=== PATIENT | male | born 1945 | race Caucasian/White ===

== ENCOUNTER → 2017-12-05 | Outpatient (CLI) | payer MEDICARE ==
[2017-12-05 10:45] LABS: BASOPHILS ABSOLUTE AUTO 0.04 K/mm3 (0.00-0.23); BASOPHILS PERCENT AUTO 1 % (0-2); EOSINOPHILS ABSOLUTE AUTO 0.12 K/mm3 (0.00-0.68); EOSINOPHILS PERCENT AUTO 2 % (0-6); Hematocrit 52.3 % (37.0-53.0); Hemoglobin 18.3 g/dL (13.5-17.5); IMMATURE GRAN ABSOLUTE AUTO 0.02 K/mm3 (0.00-0.10); IMMATURE GRAN PERCENT AUTO 0 % (0-1); LYMPHOCYTES ABSOLUTE AUTO 1.29 K/mm3 (0.84-5.20); LYMPHOCYTES PERCENT AUTO 18 % (21-46); MONOCYTES ABSOLUTE AUTO 0.67 K/mm3 (0.16-1.47); MONOCYTES PERCENT AUTO 10 % (4-13); Mean Corpuscular HGB 30.6 pg (26.0-34.0); Mean Corpuscular Volume 87 fL (80-100); Mean Platelet Volume 10.7 fL (9.1-12.4); NEUTROPHILS ABSOLUTE AUTO 4.91 K/mm3 (1.96-9.15); NEUTROPHILS PERCENT AUTO 70 % (41-73); Platelet Count 178 K/mm3 (150-400); RDW Coefficient Variation 12.5 % (11.7-14.2); RDW Standard Deviation 39.7 fL (35.1-46.3); Red Blood Cell Count 5.99 M/mm3 (4.30-5.90); White Blood Cell Count 7.05 K/mm3 (4.00-11.30)
[2017-12-05 10:56] LABS: Alanine Aminotransfer (ALT/SGP 20 U/L (12-78); Albumin, Blood 3.8 g/dL (3.4-5.0); Albumin/Globulin Ratio 0.9 (0.8-1.8); Alk Phos 119 U/L (40-126); Anion Gap 9 mmol/L (6-16); Aspartate Aminotrans (AST/SGOT 20 U/L (12-37); Bilirubin, Total 0.8 mg/dL (0.1-1.0); Blood Urea Nitrogen 14 mg/dL (8-24); Bun/Creatinine Ratio 13.5 (12.0-20.0); CO2, Blood 29 mmol/L (21-32); Calcium, Blood 9.1 mg/dL (8.5-10.1); Chloride, Blood 104 mmol/L (98-108); Creatinine, Blood 1.04 mg/dL (0.60-1.20); Globulin, Blood 4.4 g/dL (2.2-4.0); Glomerular Filtration Rate >60 (60-); Glucose, Blood 136 mg/dL (70-99); Sodium, Blood 142 mmol/L (136-145); Total Protein, Blood 8.2 g/dL (6.4-8.2)
== END ==
LOC: LAB EV 10:39 → LAB SHORT 10:39
PROVIDERS: General Practice
DX: N48.1 Balanitis (principal)
CPT/HCPCS: 80053; 85025

== ENCOUNTER 2020-05-30 15:47 | Inpatient (IN) | payer MEDICARE ==
[~2020-05-30] VITALS: Ht 182.9 cm; Wt 118.1 kg
[2020-05-30] MEDS ORDERED: SYMBICORT 80-10.2 GM INH (16:03)
[2020-05-30] MEDS ORDERED: ALBU8HFA2 INH (16:04)
[2020-05-30] MEDS ORDERED: ANORO ELLIPTA1 EAC1 (16:04)
[2020-05-30] MEDS ORDERED: TAMS.4ER PO (16:05)
[2020-05-30] MEDS ORDERED: NEBI10 PO (16:05)
[2020-05-30 16:28] LABS: BASOPHILS ABSOLUTE AUTO 0.05 K/mm3 (0.00-0.23); BASOPHILS PERCENT AUTO 1 % (0-2); EOSINOPHILS ABSOLUTE AUTO 0.08 K/mm3 (0.00-0.68); EOSINOPHILS PERCENT AUTO 1 % (0-6); Hematocrit 52.7 % (37.0-53.0); Hemoglobin 17.1 g/dL (13.5-17.5); IMMATURE GRAN ABSOLUTE AUTO 0.04 K/mm3 (0.00-0.10); IMMATURE GRAN PERCENT AUTO 0 % (0-1); LYMPHOCYTES PERCENT AUTO 11 % (21-46); MONOCYTES ABSOLUTE AUTO 0.58 K/mm3 (0.16-1.47); MONOCYTES PERCENT AUTO 5 % (4-13); Mean Corpuscular HGB 29.1 pg (26.0-34.0); Mean Corpuscular HGB Conc 32.4 g/dL (31.5-36.5); Mean Corpuscular Volume 90 fL (80-100); Mean Platelet Volume 10.5 fL (9.1-12.4); NEUTROPHILS PERCENT AUTO 82 % (41-73); Platelet Count 226 K/mm3 (150-400); RDW Coefficient Variation 12.3 % (11.7-14.2); RDW Standard Deviation 41.1 fL (35.1-46.3); Red Blood Cell Count 5.87 M/mm3 (4.30-5.90); White Blood Cell Count 10.85 K/mm3 (4.00-11.30)
[2020-05-30 16:54] LABS: Alanine Aminotransfer (ALT/SGP 11 U/L (12-78); Albumin, Blood 2.8 g/dL (3.4-5.0); Albumin/Globulin Ratio 0.7 (0.8-1.8); Alk Phos 128 U/L (50-136); Anion Gap 6 mmol/L (6-16); Aspartate Aminotrans (AST/SGOT 26 U/L (12-37); Bilirubin, Total 0.9 mg/dL (0.1-1.0); Blood Urea Nitrogen 12 mg/dL (8-24); Bun/Creatinine Ratio 13.7 (12.0-20.0); CO2, Blood 25 mmol/L (21-32); Calcium, Blood 8.8 mg/dL (8.5-10.1); Chloride, Blood 107 mmol/L (98-108); Creatinine, Blood 0.88 mg/dL (0.60-1.20); Globulin, Blood 4.1 g/dL (2.2-4.0); Glomerular Filtration Rate >60 (60-); Glucose, Blood 119 mg/dL (70-99); Potassium, Blood 4.4 mmol/L (3.5-5.5); Sodium, Blood 138 mmol/L (136-145); Total Protein, Blood 6.9 g/dL (6.4-8.2); Troponin I <0.015 ng/mL (0.000-0.040)
[2020-05-30 18:08] LABS: Influenza A, PCR Negative (NEGATIVE); Influenza B, PCR Negative (NEGATIVE); Resp Syncytial Virus, PCR Negative (NEGATIVE); SARS-Cov-2 (COVID-19) PCR, MMC Negative (NEGATIVE)
[2020-05-30] MEDS ORDERED: INCRUSE ELPT 62.5 INH (18:33)
[2020-05-30] MEDS ORDERED: TAMSULOSIN HCL0.4 M1 PO (18:34)
--- NOTE | 2020-05-30 20:23 | NUR ---
REPORT RECEIVED FROM NANCY IN ED, RECEIVED PT TO PCU 14. OREINTED PT TO CALL LIGHT AND SURROUNDINGS. ADMISSION ASSESSMENT INTIATED. PT HAS MOD AMOUNT SHORTNESS OF BREATH WITH ALL EXETION INCLUDING TALKING. O2@3.5LPM. WILL CONTINUE TO MONITOR
--- NOTE | 2020-05-31 01:55 | NUR ---
PT HAD APPROX 1 MINUTE RUN OF TACKYCARDIA IN 150s. PT RESTING IN BED, DENIES ANY CHEST PAIN/SOB/ANXIETY. BP STABLE @ 129/74. PT HAD 2ND RUN SHORTLY THERE AFTER, PT CONTINUES TO BE BY ASYMPTOMATIC, WATCHING TV IN BED. BP STABLE @ 122/74. PAGED CORK TIPPER VOLTAGE INSPECTOR FOR UPDATE
--- NOTE | 2020-05-31 05:08 | NUR ---
SHIFT SUMMARY PT A&O THROUGHOUT SHIFT. LUNG SOUNDS DECREASED WITH EXERTIONAL DYSPNEA/SHORTNESS OF BREATH. CONGESTED COUGH, NON PRODUCTIVE AT THIS TIME. O2@ 3.5LPM VIA NC. C/O CHRONIC PAIN TO NECK FROM OLD INJURY, DID NOT REQUEST PAIN MED. STANDS TO URINATE, VOIDING CLR YELLOW URINE, BECOMES DYSPNIC WITH EFFORT. RESP STATUS RECOVERS WELL WITH PERIODS OF REST. WILL CONTINUE TO MONITOR
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
--- NOTE | 2020-05-31 17:15 | NUR ---
SUMMARY PT SITTING UP IN BED WATCHING TV, PT HAS BEEN PLEASANT AND COOPERATIVE WITH CARE T/O THE DAY, PT REMAINS ON 3L NC, PT DYSPNEIC WITH ANY ACTIVITY, USES THE CALL LIGHT APPROPRIATELY, NO COMPLAINTS, VSS, WILL CONT TO MONITOR
--- NOTE | 2020-05-31 20:59 | NUR ---
1997 74 Y/O OBESE MALE RESTING COMFORTABLY IN BED; CHEERFUL; DENIES CHEST PAIN OR NAUSEA.
--- NOTE | 2020-06-01 03:06 | NUR ---
SHIFT SUMMARY: 74 Y/O OBESE MALE RESTED COMFORTABLY ALL SHIFT; DENIES PAIN OR NAUSEA; TELEMETRY REFLECTS NSR PER ROSALIE--RISK INTERN; PT WEARING O2 AT 3L/M PER NASAL CANNULA WITH SATS AVERAGING 91%; LUNG SOUNDS ARE DIMINISHED THROUGHOUT; ALERT AND ORIENTED X4; BED HIGH FOWLERS POSITION; BED LOW POSITION WITH CALL LIGHT AT SIDE.
[2020-06-01 09:08] LABS: International Normalized Ratio 1.06; Prothrombin Time Results 11.3 Sec (9.7-11.5)
--- NOTE | 2020-06-01 10:13 | NUR ---
PT TO US FOR THORACENTESIS
[2020-06-01 11:10] LABS: Automated BF RBC Count 0.032 M/mm3 (0-0); Automated BF WBC Count 0.525 K/mm3 (0-999); Body Fluid WBC Count 525 /mm3 (0-999); RBC Count, Body Fluid 32000 /mm3 (0-0)
--- NOTE | 2020-06-01 11:20 | NUR ---
PT HAS RETURNED FROM THORACENTESIS WITH INCREASED WORK OF BREATHING, DIAPHORETIC, AND INCREASED PAIN TO LT CHEST AND BACK NEAR INSERTION SITE. SPO2 86%. DR OTOOLE IS CALLED FOR NEW ORDERS FOR FENTANYL. DIMENISHED LS TO LT SIDE
--- NOTE | 2020-06-01 11:39 | NUR ---
PT REFUSED PAIN MEDICATION. REPORTS 11/21 PAAIN. PT NOW SITTING UP TO BEDSIDE, TALKING IN FULL SENTENCES. NO TRIPODDING OR SPLINTING NOTED. SPO2 88%
[2020-06-01 11:45] LABS: Albumin, Body Fluid 1.8 g/dL; Glucose, Body Fluid 107 mg/dL; Lactate Dehydrogenase, Body Fl 246 U/L; Protein, Body Fluid 3.3 g/dL
[2020-06-01 12:03] LABS: Color, Body Fluid Red (None-Yellow); Total Cell Count, Body Fluid 100
[2020-06-01 12:04] LABS: Appearance, Body Fluid Hazy (Clear)
[2020-06-01 12:06] LABS: pH, Body Fluid 7.9
--- NOTE | 2020-06-01 12:35 | NUR ---
PT STS THAT PAIN HAS LESSENED, REPORTS PAIN ONLY WITH DEEP INSPIRATION. PT LAUGHING AND TALKING IN FULL SENTENCES. RESTING WELL IN BED.
--- NOTE | 2020-06-01 16:55 | NUR ---
SHIFT SUMMARY PCU TRANSFER THIS AFTERNOON. PATIENT REPORTS OCCASSIONAL PLUERITIC PAIN BUT DECLINES PAIN MEDICATION AT THIS TIME. REPORTS SHORTNESS OF OF BREATH W/ ACTIVITY. 4L/NC TO MAINTAIN OXYGEN SATURATION ABOVE 90%. UP SBA W/FWW TO BR. PLEASANT AND COOPERATIVE WITH CARE.
--- NOTE | 2020-06-02 04:50 | NUR ---
SHIFT SUMMARY PT A/O X4; PLEASANT AND COOPERATIVE WITH CARE. HAD THORACENTESIS DONE YESTERDAY. 1 ASSIST TO BA W/FWW. USES URINAL AT BEDSIDE. CURRENTLY ON 4 LITERS O2 VIA NC. LUNG SOUNDS VERY DIMINISHED T/O. DID NOT REPORT ANY PAIN OR DISCOMFORT THIS SHIFT. VSS; RESTING COMFORTABLY W/CALL LIGHT IN REACH.
--- NOTE | 2020-06-02 06:20 | NUR ---
I AGREE WITH OSMAN BURGESS'S ASSESSMENT OF THIS PATIENT.
--- NOTE | 2020-06-02 19:17 | NUR ---
SHIFT SUMMARY: PT A&O; CALM AND COOPERATIVE WITH CARE. MALIGNANCY DIAGNOSIS THIS SHIFT; ONCOLOGY CONSULT (DR POTTER) PLACED TO ANSWERING SERVICE. NO C/O PAIN OR NAUSEA THIS SHIFT. IV ABX CONTINUING. REPORT GIVEN TO ONCOMING RN.
--- NOTE | 2020-06-03 05:40 | NUR ---
SHIFT SUMMARY PT A/O X4; PLEASANT AND COOPERATIVE WITH CARE. PT HAS BEEN SLEEPING OFF AND ON DURING THE SHIFT. THE PT REPORTS HAVING TROUBLE W/SLEEP AT BASELINE. ONCOLOGY CONSULT IN THE AM. PT ON 4 LITERS OF O2 VIA NC. USES THE URINAL AT BEDSIDE. VSS; CALL LIGHT IN REACH.
--- NOTE | 2020-06-03 10:17 | NUR ---
the iv needle really cause a lot of pain and pt jerked and the first iv failed requiring a second attempt that was successful
--- NOTE | 2020-06-03 13:36 | NUR ---
After receiving a spiritual care referral for spiritual care because of a new cancer diagnosis, I visit patient. Patient tells me about the findings and shows me the picture drawn on the ink board of the cancer location and talks about the personal struggles in dealing with such news. I normalize patient's worries and thought process, reinforce helpful attitudes and practices and provide spiritual guidance and prayer. Patient responds well and states that he is encouraged and uplifted by the time and care given. I will continue to remain available to patient.
--- NOTE | 2020-06-03 19:32 | NUR ---
SHIFT SUMMARY: NO ACUTE CHANGES TO REPORT THIS SHIFT. PT A&O; CALM AND COOPERATIVE WITH CARE. NO C/O PAIN THIS SHIFT. ABD CT THIS SHIFT; EXPECTED NEEDLE BIOPSY 06/04 R/T LEFT LUNG MASS. IV ABX CONTINUING. REPORT GIVEN TO ONCOMING RN.
--- NOTE | 2020-06-04 04:01 | NUR ---
SUMMARY PT HAS NOT SLEPT MUCH THIS SHIFT. PT HAS SOB W/ EXERTION AND CONTINUES TO TAKE OFF O2 TO USE BATHROOM. PT FREQUENTLY COUGHS UP THICK SECRETIONS THAT MAKE HIM GAG. PT STATES HE IS TRYING TO DRINK WATER TO THIN SECRETIONS. PT CURRENTLY SLEEPING AND IN NO DISTRESS. CALL LIGHT IN REACH.
--- NOTE | 2020-06-04 14:07 | NUR ---
NUCLEAR PLANT EQUIPMENT OPERATOR CALLED THIS NURSE TO PT ROOM AND REPORTED THAT PT WAS HAVING INCREASED SOB. PT WAS SITTING UPON THE SIDE OF THE BED A/O X 4 AND ABLE TO TALK BUT WITH O2 SAT 89-90 % ON 4 LPM. CHARGE NURSES WERE CALLED TO THE ROOM AND THIS NURSE CALLED DR ROCK. ORDERS WERE OBTAINED TO CHANGE PT TO AN OXIMIZER AND GIVE LASIX, BOTH ORDERS WERE IMPLEMENTED AND PT IS NOT ON 10 LPM WITH ON O2 OF 93%. PT IS NOW ON CONTINUOUS PULSE OX AND A PALLIATIVE CARE CONSULT WAS ENTERED. PT IS RESTING IN BED. HE HAS SUCTION SET UP FOR WHEN HE COUGHS UP SECRETIONS. PT ENCOURAGED TO CALL FOR HELP BEFORE TOILETING SINCE HE IS HAVING DYSPNEA ON EXERTION.
[2020-06-04 14:54] LABS: BASOPHILS ABSOLUTE AUTO 0.07 K/mm3 (0.00-0.23); BASOPHILS PERCENT AUTO 1 % (0-2); EOSINOPHILS ABSOLUTE AUTO 0.18 K/mm3 (0.00-0.68); EOSINOPHILS PERCENT AUTO 1 % (0-6); Hemoglobin 16.9 g/dL (13.5-17.5); IMMATURE GRAN ABSOLUTE AUTO 0.12 K/mm3 (0.00-0.10); IMMATURE GRAN PERCENT AUTO 1 % (0-1); LYMPHOCYTES ABSOLUTE AUTO 1.15 K/mm3 (0.84-5.20); LYMPHOCYTES PERCENT AUTO 8 % (21-46); MONOCYTES ABSOLUTE AUTO 0.92 K/mm3 (0.16-1.47); MONOCYTES PERCENT AUTO 6 % (4-13); Mean Corpuscular HGB 29.5 pg (26.0-34.0); Mean Corpuscular HGB Conc 33.1 g/dL (31.5-36.5); Mean Corpuscular Volume 89 fL (80-100); Mean Platelet Volume 11.1 fL (9.1-12.4); NEUTROPHILS ABSOLUTE AUTO 12.05 K/mm3 (1.96-9.15); NEUTROPHILS PERCENT AUTO 83 % (41-73); Platelet Count 226 K/mm3 (150-400); RDW Coefficient Variation 12.3 % (11.7-14.2); Red Blood Cell Count 5.72 M/mm3 (4.30-5.90); White Blood Cell Count 14.49 K/mm3 (4.00-11.30)
[2020-06-04 14:58] LABS: Percent Saturation 18.7 % (20.0-50.0)
[2020-06-04 15:02] LABS: Alanine Aminotransfer (ALT/SGP 20 U/L (12-78); Albumin, Blood 2.6 g/dL (3.4-5.0); Albumin/Globulin Ratio 0.7 (0.8-1.8); Alk Phos 102 U/L (50-136); Anion Gap 7 mmol/L (6-16); Aspartate Aminotrans (AST/SGOT 17 U/L (12-37); Bilirubin, Total 0.4 mg/dL (0.1-1.0); Blood Urea Nitrogen 15 mg/dL (8-24); Bun/Creatinine Ratio 16.3 (12.0-20.0); CO2, Blood 26 mmol/L (21-32); Calcium, Blood 8.6 mg/dL (8.5-10.1); Chloride, Blood 102 mmol/L (98-108); Creatinine, Blood 0.92 mg/dL (0.60-1.20); Globulin, Blood 3.5 g/dL (2.2-4.0); Glomerular Filtration Rate >60 (60-); Glucose, Blood 132 mg/dL (70-99); Magnesium, Blood 2.4 mg/dL (1.6-2.4); Potassium, Blood 4.1 mmol/L (3.5-5.5); Sodium, Blood 135 mmol/L (136-145); Total Protein, Blood 6.1 g/dL (6.4-8.2)
--- NOTE | 2020-06-04 15:20 | NUR ---
Spoke with Bedside MEGAN Dang prior to Pt visit, discussed case and concerns. Pt newly diagnosed with Lung Cancer. Pt resting in bed upon arrival. Pt on 10 L O2 via oxymizer and holding it in his mouth. Pt reports difficulty with breathing through his nose. Pt juli pain at this time. Pt reports 6/7 dyspnea and 5/7 anxiety. Pt reports mild but manageable nausea. Engaged in therapeutic discussion regarding his cancer diagnosis. Encouraged Pt to discuss concerns and fears. Offered therapeutic listening as Pt reports having several children. Pt reports not being involved in their lives due to misconceptions his ex discussed with the children. Pt reports fear of the unknown of how long he has to live. Validated concerns and answered questions. Continued therapeutic listening as Pt is agreeable with pursuing treatment for his cancer. Discussed Dr Good's plan to obtain biopsy. Encouraged Pt to ask for Ativan when his anxiety increases as it is now. Educated on the cascade effect with dyspnea and anxiety. Engaged in therapeutic discussion regarding the importance of completing an advanced directive and appointing a healthcare herbicide service sales representative. Discussed code status including life sustaining measures, risk factors, and implications. Pt agreeable to being full code and states "I just don't want to be a vegetable". Continued therapeutic listening. Assisted Pt to bathroom and back to bed. Pt expresses appreciation of visit and reports no other concerns at this time. Palliative Care will remain available.
--- NOTE | 2020-06-04 15:57 | NUR ---
SHIFT SUMMARY PT IS A/O X 4 AND HAS NO C/O PAIN. HE HAS BEEN SOB THROUGHOUT THE DAY. HE HAS BEEN WORKING WITH RT. DR ROCK HAS SEEN THE PT ALONG WITH PALLIATIVE CARE. THE PT WAS ENCOURAGED TO USE THE BSC FOR TOILETING HE IS SOB WHEN WALKING TO THE BATHROOM BUT HE DECLINED, HE HAS BEEN A X 1 ASSIST TO AMBULATE AND TOILET DUE TO HIS SOB. PT IS ABLE TO MAKE HIS NEEDS KNOWN AND CALLS FOR HELP WHEN NEEDED. HE HAS HIS CALL LIGHT IN REACH.
--- NOTE | 2020-06-05 06:29 | NUR ---
INCREASED O2 NEEDS AT THE START OF THE SHIFT PT WENT FROM 10 L VIA OXYMIZER TO 15L PER RT. PT HAS BEEN AWAKE MOST OF THE NIGHT, ANXIOUS AND UNABLE TO REST. HE HAS TAKEN HIS OXYGEN ON AND OFF T/O THE NIGHT, AND HAS HAD POSITIONAL BREATHING SITTING ON THE EDGE OF THE BED TO CATCH HIS BREATH. PURSED LIP BREATHING AT TIMES. PT HAS KEPT HIS OXYGEN ON FOR A GOOD PORTION OF THE SHIFT BUT THE NIGHT HAS PROGRESSED HE HAS GOTTEN MORE ANXIOUS AND CONFUSED. MEDICATED X1 WITH ATIVAN AROUND 0300 PER PT REQUEST TO HELP WITH ANXIETY AND SLEEP. I HAVE SPOKEN WITH BOTH POLE CLASSIFIER'S MEG, AND ENE PARISI RN REGARDING PT INCREASED O2 NEEDS FROM 10L-15L WELL RESPIRATORY THERAPY. PER RT AND POLE CLASSIFIER IF PT IS SUSTAINING 90% NO FURTHER INTERVENTIONS ARE NEEDED. PER LAST DOCTOR'S PROGRESS NOTE, MAINTAIN SATS ABOVE 90%. PT HAS BEEN ABLE TO MAINTAIN SATS AT 90% WHEN HE IS AWAKE FOR A GOOD PORTION OF THE SHIFT. HOWEVER WHEN HE IS SLEEPING HE REMOVES OXYGEN AND BIOX, AND SATS DROP FROM 88 TO LOW 80'S. PT HAS BECOME MORE INCREASINGLY CONFUSED THE NIGHT HAS PROGRESSED. HE WILL NOT KEEP HIS O2 ON OR BIOX DESPITE CONSTANT REMINDERS FROM STAFF, AND ATTEMPTS TO GET OOB. AROUND 0500 DR. POWELL CALLED AND NOTIFIED OF PT INCREASED CONFUSION AND RECEIVED ORDER FOR TRANSFER TO PCU WITH WRIST RESTRAINTS. CALLED AND SPOKE WITH DISASTER RECOVERY COORDINATOR, WHO STATES PT WILL NEED TO ICU TRANSER DUE TO RESTRAINTS AND BIPAP. PT TO BE TRANSFERRED TO ICU. REPORT GIVEN TO LAND MEASURER. PT TO BE TRANSFERRED TO ICU 14.
--- NOTE | 2020-06-05 06:31 | NUR ---
SHIFT SUMMARY PT HAS BEEN AWAKE MOST OF THE NIGHT ANXIOUS AND UNABLE TO SLEEP. PT BECOMES EASILY SOB WITH EXERTION. PT O2 NEEDS INCREASED FROM 10L-15 L PER RT. PT LUNGS DIMINISHED T/O WITH PRODUCTIVE COUGH. PT HAD BEEN A/OX4 FOR MOST OF THE NIGHT, HOWEVER THE NIGHT PROGRESSED PT BECAME MORE CONFUSED. HE WOULD NOT KEEP HIS O2 OR BIOX ON AND WOULD ATTEMPT TO GET OOB WITHOUT ASSISTANCE. PT VERY UNSTEADY ON HIS FEET WITHOUT ASSISTANCE. DESPITE CONSTAT REMINDERS TO KEEP O2 PT WOULD CONTINUE TO REMOVE. DR. POWELL CALLED AND NOTIFIED OF PT INCREASED O2 NEEDS AND CONFUSION. ORDER RECEIVED FOR TRANSFER TO ICU WITH WRIST RESTRAINTS AND BIPAP TO MAINTAIN SATURATION AND TO KEEP PT FROM REMOVING BIPAP/O2. PT VITALS HAVE BEEN STABLE T/O NIGHT AND IV ABX INFUSED ORDERED. PT TRANSERRED TO ICU WITH BELONGINGS IN PLACE. REPORT GIVEN TO CANDLE MOLDER MACHINE. PT TRANSFERRED WITHOUT EVENT.
--- NOTE | 2020-06-05 06:40 | NUR ---
PT UP TO ICU 14 FROM MED FLOOR. ON 15L OXYMIZER. SPO2 >92%. SBP IN THE 120S. HR IN THE 100S. PT IS FOLLOWING COMMANDS AND HAS AGREED TO LEAVE O2 IN PLACE. CALL LIGHT IN REACH. PT REQUESTED LIGHT TO BE TURNED DOWN SO HE COULD SLEEP A BIT LONGER. WILL PASS REPORT TO ONCOMING SHIFT.
--- NOTE | 2020-06-05 10:07 | NUR ---
PT FOUND CONFUSED, VERY RESTLESS, AND AGITATED, ATTEMPTING TO CLIMB OUT OF BED W EYES CLOSED. PT UNABLE TO COMMUNICATE WELL, SPEECH IS NONSENSICAL. SATS 80% W OXYMIZER PULLED AWAY FROM NOSE. DR HERNANDEZ NOTIFIED AND AT BEDSIDE SHORTLY AFTER NOTIFICATION. PT PLACED IN CHARLES AND BILAT WRIST RESTRAINTS; HE IS CONFUSED AND CONT TO PULL OFF O2 AND MONITORS. BIPAP PLACED ON PT 14/8 W 60% FIO2. SATS NOW 96%. RESP RATE 30'S. ABSENT LUNG SOUNDS TO LEFT LOBES, VERY DIMINISHED LUNG SOUNDS TO RIGHT LOBES. PRECEDEX STARTED AND TITRATED UP TO 0.6MCGMCG/KG/HR. SUAZO PLACED 14F COUDE PLACED W/O DIFF. UA SENT.
--- NOTE | 2020-06-05 10:20 | NUR ---
AM NOTE... ASSUMED CARE OF PT APROX 0700 PT IS A&Ox3 ABLE TO STATE HIS NAME/BIRTHDAY, AND THE YEAR. HE IS ABLE TO FOLLOW COMMANDS. PT IS ON 15L OXYMIZER WITH O2 SATS>92%. OTHER VS STABLE. NO EDEMA IS NOTED ON ASSESSMENT. PT IS IN NSR IN THE 70'S-80'S. PT IS ON 15L OXYMIZER RR 20'S LABORED/PURSED LIP BREATHING L/S CLEAR AND DIM ON THE RIGHT SIDE ABSENT ON THE LEFT. BT PRESENT AND HYPOACTIVE, ABD SOFT AND NONTENDER TO PALP. DR. POTTER AT THE BEDSIDE AROUND 0800 TO ASSESS THE PT. STAT CHEST XRAY WAS ORDERED AND OBTAINED. XRAY SHOWED LEFT SIDED COLASPED LUNG, DR. POTTER, DR. HERNANDEZ AND DR. BOSS WERE CALLED AND UPDATED. DR. POTTER ORDERED FOR CHEMO TO START TODAY, HOWEVER [facility] ON HAND. AT APROX 1000 PT BECAME MORE CONFUSED AND SATS DECREASED, PT WAS PUT ON BIPAP, A SUAZO WAS PLACED AND PRECEDEX WAS STARTED AND PT WAS PLACED IN A CHARLES. CALL LIGHT IN REACH WILL CONTINUE TO MONITOR.
[2020-06-05 10:25] LABS: PCO2 Arterial 44.9 mmHg (35-45); PO2 Arterial 80.2 mmHg (80-100)
[2020-06-05 10:28] LABS: Source, Urine Catheter
[2020-06-05 10:33] LABS: Bilirubin, Urine Neg (Neg); Blood, Urine 2+ (Neg); Glucose Qualitative, Urine Neg (Neg); Ketones, Urine Neg (Neg); Leukocyte Esterase, Urine 1+ (Neg); Nitrite, Urine Neg (Neg); Protein, Urine Neg (Neg); Specific Gravity, Urine 1.025 (1.003-1.022); Urobilinogen, Urine NORM (Normal)
[2020-06-05 10:41] LABS: Appearance, Urine Clear (Clear); Color, Urine Yellow (P-Yellow)
[2020-06-05 10:42] LABS: Bacteria Few /hpf; Spermatozoa Few /hpf; Squamous Epithelial Cells Not Seen /hpf (Few)
--- NOTE | 2020-06-05 12:48 | NUR ---
CHAVO ASSUMED OF PT. PT SEDATED ON PRECEDEX AT 0.4MCG. PT SLEEPING W BIPAP ON NOW AND IS CALM/RESTFUL, BUT AWAKENS INTERMIT VERY AGITATED. WHEN AWAKE PT ATTEMPTS TO PULL OFF BIPAP, CORDS, LINES, SUAZO. IN FACT THERE IS A SMALL AMT OF BLOOD IN URINE FROM PT PULLING ON CATH. PT VERY STRONG. PT IS TO HAVE A THORACENTESIS W RADIOLOGIST SHORTLY. DR HERNANDEZ OBTAINED CONSENT FROM PT'S DAUGHTER VIA PHONE. PT WILL REQUIRE ADDITIONAL SEDATION MEDICATION FOR PROCEDURE WHICH HAVE BEEN ORDERED.
[2020-06-05 13:09] LABS: BASOPHILS ABSOLUTE AUTO 0.06 K/mm3 (0.00-0.23); BASOPHILS PERCENT AUTO 0 % (0-2); EOSINOPHILS ABSOLUTE AUTO 0.13 K/mm3 (0.00-0.68); EOSINOPHILS PERCENT AUTO 1 % (0-6); Hemoglobin 16.2 g/dL (13.5-17.5); IMMATURE GRAN PERCENT AUTO 1 % (0-1); LYMPHOCYTES ABSOLUTE AUTO 0.87 K/mm3 (0.84-5.20); LYMPHOCYTES PERCENT AUTO 7 % (21-46); MONOCYTES ABSOLUTE AUTO 0.88 K/mm3 (0.16-1.47); MONOCYTES PERCENT AUTO 7 % (4-13); Mean Corpuscular HGB Conc 33.1 g/dL (31.5-36.5); Mean Corpuscular Volume 88 fL (80-100); NEUTROPHILS ABSOLUTE AUTO 11.36 K/mm3 (1.96-9.15); NEUTROPHILS PERCENT AUTO 85 % (41-73); RDW Coefficient Variation 12.3 % (11.7-14.2); RDW Standard Deviation 39.5 fL (35.1-46.3); Red Blood Cell Count 5.58 M/mm3 (4.30-5.90)
[2020-06-05 13:20] LABS: Mean Platelet Volume 10.9 fL (9.1-12.4); Platelet Count 185 K/mm3 (150-400)
[2020-06-05 13:35] LABS: Alanine Aminotransfer (ALT/SGP 16 U/L (12-78); Albumin, Blood 2.2 g/dL (3.4-5.0); Albumin/Globulin Ratio 0.7 (0.8-1.8); Alk Phos 81 U/L (50-136); Anion Gap 4 mmol/L (6-16); Aspartate Aminotrans (AST/SGOT 25 U/L (12-37); Bilirubin, Total 0.7 mg/dL (0.1-1.0); Blood Urea Nitrogen 18 mg/dL (8-24); Bun/Creatinine Ratio 19.1 (12.0-20.0); CO2, Blood 25 mmol/L (21-32); Calcium, Blood 8.2 mg/dL (8.5-10.1); Chloride, Blood 104 mmol/L (98-108); Creatinine, Blood 0.94 mg/dL (0.60-1.20); Globulin, Blood 3.2 g/dL (2.2-4.0); Glomerular Filtration Rate >60 (60-); Glucose, Blood 130 mg/dL (70-99); Potassium, Blood 4.5 mmol/L (3.5-5.5); Sodium, Blood 133 mmol/L (136-145); Total Protein, Blood 5.4 g/dL (6.4-8.2)
--- NOTE | 2020-06-05 13:45 | NUR ---
THORACENTESIS COMPLETED. 1.5L SS FLUID TAKEN OFF OF KELTON. PT REQUIRED ATIVAN MG AND FENT 50MCG FOR PROCEDURE. PT HYPOTENSIVE POST PROCEDURE. DR HERNANDEZ NOTIFIED; 1L NS BOLUS STARTED. NEW 18G PLACED TO RIGHT WRIST. SATS 93% ON BIPAP 12/8, FIO2 AT 50%.
--- NOTE | 2020-06-05 14:27 | NUR ---
PT'S BP IS IMPROVING. PT REMAINS ASLEEP ON RIGHT SIDE. VEST REMOVED, WRIST RESTRAINTS REMAIN.
--- NOTE | 2020-06-05 18:20 | NUR ---
FULL FACE MASK PLACED ON PT D/T EXCESSIVE LEAKING AND INCREASED PRESSURE ON BRIDGE OF NOSE W PRIOR MASK. PT TOLERATING FULL FACE MASK; TV IMPROVED, LEAK DECREASED. PRECEDEX REMAINS AT 0.2MCG. PT ALEMAN, MILDLY RESTLESS WHILE SLEEPING. BP STABLE. PT'S DAUGHTER UPDATED.
--- NOTE | 2020-06-05 19:30 | NUR ---
ASSUMPTION OF CARE RECEIVED REPORT FROM NAZ GUZMAN. ASSUMED CARE OF PATIENT. PATIENT WITH EYES CLOSED, BIPAP WITH FIO2 AT 50%. PRECEDEX AT 0.2MCG/KG. NO S/S OF DISTRESS.
--- NOTE | 2020-06-06 | NUR ---
REASSESSMENT NO ACUTE CHANGES FROM INITIAL ASSESSMENT. BIPAP IN PLACE WITH FIO2 AT 45%. PRECEDEX REMAINS AT 0.1MCG/KG/HR. REPORTED PATIENTS' DECREASED URINE OUTPUT TO DR. HERNANDEZ. RECEIVED ORDERS FOR IV FLUIDS. WILL ADMINISTER ORDERED.
--- NOTE | 2020-06-06 04:00 | NUR ---
REASSESSMENT NO ACUTE CHANGES FROM PREVIOUS ASSESSMENT. BIPAP IN PLACE WITH FIO2 45%. PRECEDEX INFUSING CHARTED. URINE OUTPUT INCREASING, REMAINS YAYO IN COLOR. NO S/S OF DISTRESS, WILL CONTINUE TO MONITOR.
--- NOTE | 2020-06-06 06:55 | NUR ---
SHIFT SUMMARY PATIENT SEDATED ON PRECEDEX, TOLERATING BIPAP THROUGH NIGHT WITH FIO2 CURRENTLY AT 45%, BECAME AGITATED AND WAKEFUL THIS MORNING. PRECEDEX TITRATED UP CHARTED. NO S/S OF DISTRESS. WILL GIVE REPORT TO ONCOMING RN.
--- NOTE | 2020-06-06 08:17 | NUR ---
AM NOTE... ASSUMED CARE OF PT APROX 0700, PT IS CURRENTLY ON BIPAP AT 10/8 AND 45% WITH O2 SATS>90%. PT IS ON PRECEDEX GTT RUNNING AT 0.4MCG, PT IS CALM BUT OCC PULLING AT RESTRAINTS AND SHIFTING IN THE BED, PT IS NOT FOLLOWING COMMANDS. PT'S VS STABLE AT THIS TIME, TEMP IS 99.0. PT IS IN NSR IN THE 80'S. TRACE EDEMA NOTED ON ASSESSMENT. L/S RIGHT SIDE IS DIM T/O ABSENT IN THE RLL, LEFT SIDE IS ABSENT T/O WITH VERY MINIMAL AIR MOVEMENT TO THE UPPER LEFT LOBE. BT PRESENT AND HYPOACTIVE, ABD IS SOFT AND NONTENDER TO PALP. SUAZO IS PATENT AND DRAINING CLEAR YAYO URINE TO GRAVITY. DR. POTTER AT THE BEDSIDE THIS AM FOR ASSESSMENT. WAS UPATED ON CURRENT SITUATION WITH WAITING ON THE CHEMO MEDICATION TO ARRIVE. PER DR. POTTER HE WANTED THE RADIOLOGIST FROM [facility] TO COME AND ASSESS THE PT AND ESTABLISH A PLAN OF TREATMENT. PT'S DAUGHTER CALLED AND WAS UPDATED ON THE SITUATION, PLAN OF CARE AND PT'S CURRENT CONDITION. WILL CONTINUE TO MONITOR.
--- NOTE | 2020-06-06 10:20 | NUR ---
PT UPDATE... RADIOLOGIST FROM [facility] DR. DAMON AT THE BEDSIDE TO ASSESS THE PT.
[2020-06-06 10:21] LABS: BASOPHILS ABSOLUTE AUTO 0.04 K/mm3 (0.00-0.23); BASOPHILS PERCENT AUTO 0 % (0-2); EOSINOPHILS ABSOLUTE AUTO 0.03 K/mm3 (0.00-0.68); EOSINOPHILS PERCENT AUTO 0 % (0-6); Hematocrit 47.7 % (37.0-53.0); Hemoglobin 15.8 g/dL (13.5-17.5); IMMATURE GRAN PERCENT AUTO 1 % (0-1); LYMPHOCYTES ABSOLUTE AUTO 0.72 K/mm3 (0.84-5.20); LYMPHOCYTES PERCENT AUTO 5 % (21-46); MONOCYTES ABSOLUTE AUTO 0.78 K/mm3 (0.16-1.47); MONOCYTES PERCENT AUTO 5 % (4-13); Mean Corpuscular HGB 29.9 pg (26.0-34.0); Mean Corpuscular HGB Conc 33.1 g/dL (31.5-36.5); Mean Corpuscular Volume 90 fL (80-100); Mean Platelet Volume 10.9 fL (9.1-12.4); NEUTROPHILS ABSOLUTE AUTO 12.95 K/mm3 (1.96-9.15); NEUTROPHILS PERCENT AUTO 89 % (41-73); Platelet Count 192 K/mm3 (150-400); RDW Coefficient Variation 12.5 % (11.7-14.2); RDW Standard Deviation 41.4 fL (35.1-46.3); Red Blood Cell Count 5.29 M/mm3 (4.30-5.90); White Blood Cell Count 14.62 K/mm3 (4.00-11.30)
[2020-06-06 10:53] LABS: Alanine Aminotransfer (ALT/SGP 21 U/L (12-78); Albumin/Globulin Ratio 0.7 (0.8-1.8); Alk Phos 73 U/L (50-136); Anion Gap 7 mmol/L (6-16); Aspartate Aminotrans (AST/SGOT 28 U/L (12-37); Bilirubin, Total 0.5 mg/dL (0.1-1.0); Blood Urea Nitrogen 20 mg/dL (8-24); Bun/Creatinine Ratio 23.5 (12.0-20.0); CO2, Blood 25 mmol/L (21-32); Calcium, Blood 8.1 mg/dL (8.5-10.1); Chloride, Blood 107 mmol/L (98-108); Creatinine, Blood 0.85 mg/dL (0.60-1.20); Glomerular Filtration Rate >60 (60-); Glucose, Blood 123 mg/dL (70-99); Potassium, Blood 4.7 mmol/L (3.5-5.5); Sodium, Blood 139 mmol/L (136-145)
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
--- NOTE | 2020-06-06 15:27 | NUR ---
PT UPDATE... PT CONTINUES TO BE NONRESPONSIVE TO ANY NOXIOUS STIMULI, PT WILL MOVE HIS ARMS AND HIS LEGS BUT NOT WITH PURPOSE AND PT HAS NOT BEEN ABLE TO FOLLOW ANY COMMANDS. PT TOLERATED BEING OFF OF THE BIPAP APROX 1 HOUR ON THE OXYMIZER AT 8L. L/S STILL CONTINUE TO BE ABSENT ON THE LEFT AND VERY DIM TO THE RIGHT. PT'S RR HIGH 20'S. SUAZO IS PATENT AND DRAINING DARK YAYO URINE TO GRAVITY. PER [facility] HE MUST BE ABLE TO FOLLOW COMMANDS AND BE STABLE OFF OF THE BIPAP FOR APROX 1 HOUR, PT HAS BEEN STABLE OFF OF THE BIPAP FOR APROX 1 HOUR BUT HE HAS NOT BEEN AWAKE OR ALERT. DR. POTTER UPDATED AND HE ASKED FOR THE CHEMO TO BE STARTED. CHEMO NURSE WAS NOTIFIED AND CHEMO IS CURRENTLY INFUSING PER ORDERS. WILL CONTINUE TO MONITOR.
[2020-06-06 16:15] LABS: PCO2 Arterial 49.3 mmHg (35-45); PO2 Arterial 60.6 mmHg (80-100); pH Blood Arterial 7.31 (7.35-7.45)
--- NOTE | 2020-06-06 18:18 | NUR ---
SHIFT SUMMARY... NO ACUTE NEGATIVE CHANGES NOTED THIS SHIFT, PT HAS BEEN EXTUBATED SINCE 1140. PT HAS BEEN ON THE BIPAP OFF AND T/O THE SHIFT AND ON 2L NC WHEN NOT ON THE BIPAP. PT BECAME HYPERTENSIVE THIS AFTERNOON, PROVIDER WAS MADE AWARE AND PT WAS RESTARTED ON HER HOME DOSE OF NORVASC, THIS WAS GIVEN BUT PT CONTINUES TO BE HYPERTENSIVE, DR. GORDON NOTIFIED AND NEW ORDERS OBTAINED FOR PO HYDRALAZINE. THE RECTAL TUBE WAS D/C'D WNL, PT'S SUAZO PATENT AND DRAINING CLEAR YELLOW URINE TO GRAVITY. PT ASKED FOR PUDDING TO EAT, DR. GORDON OKAY'D FOR FULL LIQUID DIET AND ADVANCE TOLERATED, PT ATE THE WHOLE PUDDING CUP AND HAD ICE WATER. PT'S CBGS HAVE BEEN STABLE THIS SHIFT. CALL LIGHT IN REACH WILL CONTINUE TO MONITOR.
--- NOTE | 2020-06-06 18:35 | NUR ---
SHIFT SUMMARY... PT'S CHEMO COMPLETED AT APROX 1800, PT IS TO BE IN CHEMO PRECAUTIONS FOR 48HRS PER CHEMO RN RONAL Lerma. PT CONTINUES TO NOT RESPOND TO NOXIOUS STIMULI BUT CAN MOVE HIS HANDS AND HIS LEGS. PT IS ON THE BIPAP AT 10/8 AND 45% FIO2 WITH O2 SATS>90%. PT HAS BEEN HYPERTENSIVE THE LAST FEW HOURS, DR. GORDON AWARE, NEW ORDERS OBTAINED FOR IV LABATALOL FOR SPB>180. PT'S SUAZO IS PATENT AND DRAINED 400MLS OF TEA COLORED URINE. NO BM THIS SHIFT. CALL LIGHT IN REACH WILL CONTINUE TO MONITOR UNTIL REPORT IS GIVEN TO ONCOMING RN.
--- NOTE | 2020-06-06 18:38 | NUR ---
PT UPDATE... PER PT'S FRIEND ASH AND JAYLAN DIAS THE PT DID NOT HAVE A CLOSE RELATIONSHIP WITH HIS DAUGHTERS AND OTHER FAMILY, INFACT IT WAS VERY TOXIC, HE HAD VERBALIZED TO HIS FRIEND ASH ALMAZAN THAT HE WANTED HER TO MAKE HIS HEALTH DECISIONS IF HE WAS UNABLE TO. THIS WAS VERBALIZED BY ASH AND BACKED UP BY WHAT THE PT TOLD THE JAYLAN DIAS. ASH AND HER DAVID ARE THE ONLY 2 NAMES THAT WERE PUT ON THE PT'S KAL AT THE TIME OF HIS ADMIT. PER ASH SANTIZO IT IS OKAY TO GIVE INFORMATION TO THE PT'S FRIEND RENÉE "CLEMENTINE". AN ETHICS CONSULT WAS PLACED.
--- NOTE | 2020-06-06 19:15 | NUR ---
ASSUMPTION OF CARE RECEIVED REPORT FROM HAYLEE RN, ASSUMED CARE OF PATIENT. PATIENT WITH BIPAP ON SETTING 04/21, FIO2 45%. IVF INFUSING ORDERED. SUAZO TO GRAVITY. PATIENT WITH NO S/S OF DISTRESS.
[2020-06-06 23:08] LABS: ADENOVIRUS F 40/41 Not Detected (Not Detected); ASTROVIRUS Not Detected (Not Detected); C DIFFICILE TOXIN A/B Not Detected (Not Detected); CAMPYLOBACTER Not Detected (Not Detected); CRYPTOSPORIDIUM Not Detected (Not Detected); CYCLOSPORA CAYETANENSIS Not Detected (Not Detected); ENTAMOEBA HISTOLYTICA Not Detected (Not Detected); ENTEROAGGREGATIVE E COLI Not Detected (Not Detected); ENTEROPATHOGENIC E COLI Not Detected (Not Detected); ENTEROTOXIGENIC E COLI Not Detected (Not Detected); GIARDIA LAMBLIA Not Detected (Not Detected); NOROVIRUS GI/GII Not Detected (Not Detected); PLESIOMONAS SHIGELLOIDES Not Detected (Not Detected); ROTAVIRUS A Not Detected (Not Detected); SALMONELLA Not Detected (Not Detected); SAPOVIRUS Not Detected (Not Detected); SHIGA-TOXIN-PRODUCING E COLI Not Detected (Not Detected); SHIGELLA/ENTEROINVASIVE E COLI Not Detected (Not Detected); VIBRIO Not Detected (Not Detected); VIBRIO CHOLERAE Not Detected (Not Detected); YERSINIA ENTEROCOLITICA Not Detected (Not Detected)
--- NOTE | 2020-06-07 01:22 | NUR ---
REASSESSMENT AROUND 2345 RN ENTERED ROOM, PATIENT WITH PURPOSEFUL MOVEMENTS TO LEFT ARM, REPOSITIONING IT FOR COMFORT, ALSO MOVING LEFT LEG AND CROSSING IT OVER RIGHT LEG. RN ASKED PATIENT TO MOVE RIGHT EXTREMITIES, PATIENT MOVED LEFT EXTREMITIES AND FOLLOWED COMMANDS, BUT NO MOVEMENT TO RIGHT EXTREMITIES. RN LIFTED RIGHT ARM AND LEG IN AIR, NO STRENGTH NOTED TO EITHER EXTREMITY. ASSESSED PUPILS, EQUAL AND REACTIVE. REMOVED BIPAP, PATIENT MOANING IN RESPONSE TO QUESTIONS, NO VERBAL RESPONSE. NOTIFIED PHYSICAL SCIENCE TEACHER AND DR. POWELL. STAT HEAD CT WAS COMPLETED WITH RESULTS REPORTED TO DR. POWELL. AWAITING DR POWELL TO ASSESS PATIENT AND FOR ADDITIONAL CARE ORDERS.
[2020-06-07 03:59] LABS: BASOPHILS ABSOLUTE AUTO 0.03 K/mm3 (0.00-0.23); BASOPHILS PERCENT AUTO 0 % (0-2); EOSINOPHILS PERCENT AUTO 0 % (0-6); Hematocrit 51.8 % (37.0-53.0); Hemoglobin 16.7 g/dL (13.5-17.5); IMMATURE GRAN ABSOLUTE AUTO 0.18 K/mm3 (0.00-0.10); IMMATURE GRAN PERCENT AUTO 1 % (0-1); LYMPHOCYTES ABSOLUTE AUTO 0.49 K/mm3 (0.84-5.20); LYMPHOCYTES PERCENT AUTO 3 % (21-46); MONOCYTES ABSOLUTE AUTO 0.44 K/mm3 (0.16-1.47); MONOCYTES PERCENT AUTO 3 % (4-13); Mean Corpuscular HGB 28.8 pg (26.0-34.0); Mean Corpuscular HGB Conc 32.2 g/dL (31.5-36.5); Mean Corpuscular Volume 90 fL (80-100); Mean Platelet Volume 11.2 fL (9.1-12.4); NEUTROPHILS ABSOLUTE AUTO 15.02 K/mm3 (1.96-9.15); NEUTROPHILS PERCENT AUTO 93 % (41-73); Platelet Count 223 K/mm3 (150-400); RDW Coefficient Variation 12.6 % (11.7-14.2); RDW Standard Deviation 41.2 fL (35.1-46.3); Red Blood Cell Count 5.79 M/mm3 (4.30-5.90); White Blood Cell Count 16.16 K/mm3 (4.00-11.30)
--- NOTE | 2020-06-07 04:00 | NUR ---
REASSESSMENT NO ACUTE CHANGES FROM PREVIOUS ASSESSMENT. PT OPENS EYES, FOLLOWS COMMANDS, COOPERATIVE AND HELPFUL WITH CARE. CONTINUES TO MOVE AND REPOSITION LEFT SIDE, RIGHT SIDE REMAINS UNCHANGED. VITALS CHARTED.
[2020-06-07 04:22] LABS: Alanine Aminotransfer (ALT/SGP 18 U/L (12-78); Albumin, Blood 2.2 g/dL (3.4-5.0); Albumin/Globulin Ratio 0.6 (0.8-1.8); Alk Phos 77 U/L (50-136); Anion Gap 8 mmol/L (6-16); Aspartate Aminotrans (AST/SGOT 24 U/L (12-37); Bilirubin, Total 0.4 mg/dL (0.1-1.0); Blood Urea Nitrogen 23 mg/dL (8-24); Bun/Creatinine Ratio 26.9 (12.0-20.0); CO2, Blood 24 mmol/L (21-32); Chloride, Blood 107 mmol/L (98-108); Creatinine, Blood 0.86 mg/dL (0.60-1.20); Globulin, Blood 3.4 g/dL (2.2-4.0); Glomerular Filtration Rate >60 (60-); Glucose, Blood 152 mg/dL (70-99); Magnesium, Blood 2.4 mg/dL (1.6-2.4); Phosphorus, Blood 2.1 mg/dL (2.5-4.9); Potassium, Blood 4.5 mmol/L (3.5-5.5); Sodium, Blood 139 mmol/L (136-145); Total Protein, Blood 5.6 g/dL (6.4-8.2)
[2020-06-07 05:11] LABS: PCO2 Arterial 45.5 mmHg (35-45); PO2 Arterial 65.9 mmHg (80-100); pH Blood Arterial 7.34 (7.35-7.45)
--- NOTE | 2020-06-07 06:05 | NUR ---
SHIFT SUMMARY PATIENT TOLERATED BIPAP, NEURO ASSESSMENT REMAINS THE SAME. DR. POWELL SPOKE WITH PATIENT'S LISTED VOCATIONAL TRAINING TEACHER AND REPORTED CHANGES IN PATIENT'S CONDITION. VITALS ARE CHARTED, HYPERTENSIVE BUT GIVEN ORDERS NOT TO TREAT SBP UNTIL ABOVE 200. PHOS REPORTED TO DR. POWELL, ORDERS RECEIVED AND GIVEN CHARTED. WILL CONTINUE TO MONITOR.
--- NOTE | 2020-06-07 08:09 | NUR ---
Ethics consult order received and processed. Chart notes and relevant statutory material reviewed, and conversation facilitated with the spiritual care provider to ascertain the principals family situation and social dynamics. 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 These facts are well established in the principals chart. In accordance with the principals unambiguous testimony and the provisions of [place]S 127.635(2)(G), we are obliged to honor his desire to rely on [facility] for guidance relating to goals of care. Thank you for this consult. Tripp Hernández Th.D.
--- NOTE | 2020-06-07 08:15 | NUR ---
ASSUMED CARE RECEIVED REPORT FROM MEGAN VAZQUEZ. PT IS AWAKE, MAKING SOUNDS OCCASSIONALLY BUT IS NONVERBAL. HE IS MOVING HIS LEFT ARM WELL, AND HIS LEFT LEG, BUT NO MOVEMENT NOTED ON RIGHT SIDE EVEN WITH COMMAND. HE IS ABLE TO SQUEEZE FINGERS, LET GO, AND FOLLOW OTHER BASIC COMMANDS. HE OPENS HIS EYES VERY MINIMALLY, PUPILS ARE ROUND EQUAL AND REACTIVE TO LIGHT. HE IS ON THE BIPAP AT 10/8, 45% WITH A RR OF 24-28. PT IN SINUS T[place], RATE 104, HYPERTENSIVE, BUT WILL ONLY MEDICATE WITH SBP > 200. SPO2 93%. PATENT SUAZO WITH DARK URINE DRAINING. PT IS CALM, AND IN/OUT OF SLEEP. RECEIVING NS AT 75 ML/HR. BED LOW AND LOCKED. CALL LIGHT WITHIN REACH.
--- NOTE | 2020-06-07 10:18 | NUR ---
Spoke with Bedside MEGAN Wooten and Dr Sweeney. Discussed case and concerns. Pt underwent chemotherapy for lung cancer and last night Pt experienced significant stroke. Daughters would like to come visit and sister May would like to arrange this. Pt resting in bed and on BIPAP. Instructed Pt on easy yes and no communication by sqeezing hand once for yes and twice for no. Pt appears to understands by squeezing hand once. Pt confirms remembering this RN over the weekend. Pt sqeezes twice for no when asked if he understand what has recently occured. Explained to Pt that he experienced a significant stroke with Pt squessing this RN's hand once. When asked if Pt would like his daughters to visit Pt squeezes hand once indicating yes. Pt appears mildly anxious. Bedside MEGAN Wooten will discuss with decision maker Marina to coordinate this effort and plan to have family meeting with Palliative Care regarding goals of care. Palliative Care will remain available.
--- NOTE | 2020-06-07 11:14 | NUR ---
UPDATE/PC THE PT IS ABLE TO ANSWER QUESTIONS BY SQUEEZING ONCE FOR YES, AND TWICE FOR NO. HE WAS ABLE TO ANSWER YES TO ALLOWING HIS 3 DAUGHTERS (KYLIE, VALERY, AND MADI) TO VISIT HIM. HE WAS ABLE TO COMMUNICATE NO TO PAIN, AND I ASKED HIM IF HE WAS HOME AND HE COMMUNICATED NO WITH TWO SQUEEZES. ALEMAN CALLED THIS MORNING AND AFTER A DISCUSSION REGARDING THE PT'S CURRENT STATUS - SHE MADE THE DECISION TO CHANGE HIS CODE STATUS TO A LIMITED: MEDS & DEFIB ONLY; AND NO CPR OR INTUBATION. THE PT TALKED WITH PALLIATIVE CARE BEFORE THE STROKE AND ALSO MADE HIS WISHES CLEAR THAT HE DID NOT WANT LIFE SUPPORT OF ANY KIND. FELIPE FROM IS ORGANIZING A MEETING WITH ASH, AND THE DAUGHTERS (2/3 IN PERSON, AND POTENTIALLY THE THIRD WILL BE CONFERENCED IN SHE WILL BE TRAVELING FROM [facility] AND HOME THAT DAY). THIS WILL HAPPEN TOMORROW BETWEEN 10-1030am AND WILL GO OVER ADVACNED CARE PLANNING, GOALS, ETC... WE ARE ALSO GOING TO LET THE DAUGHTERS SEE THE PT FOR A PERIOD OF TIME TO BE WORKED OUT BY THE ICU STAFF TOMORROW - 06/08/20. THE THIRD DAUGHTER WILL GET INTO TOWN LATER IN THE EVENING THAT DAY WITH NO PC NURSES AVAILABLE. PT DIDN'T KNOW WHAT HAPPENED TO HIM OVERNIGHT, THIS MORNING - BUT HAS BEEN INFORMED ABOUT HIS STROKE. HE IS ABLE TO COMMUNICATE "YES" NOW WHEN ASKED IF HE KNOWS WHAT HAPPENED.
--- NOTE | 2020-06-07 12:05 | NUR ---
Spiritual care visit conducted. Patient is lying in bed and minimally responsive. Patient mostly stares past me but holds my hand during prayer. Patient doesn't respond to other information or commands. I will continue to remain available to patient and family.
--- NOTE | 2020-06-07 15:34 | NUR ---
UPDATE PT APPEARS MORE LETHARGIC T/O DAY. HE CAN LOOK AT ME, AND SQUEEZE ONCE FOR YES, TWICE FOR NOW, BUT THERE IS A LOT OF TIME BETWEEN SQUEEZES. IM NOT SURE IF HE IS UNDERSTANDING WHAT I AM SAYING. HE IS NOT MOVING HIS LEFT LEG AT ALL, AND OF COURSE HIS RIGHT SIDE IS NOT MOVING EITHER. HIS RIGHT UPPER EXTREMITY MOVES WITH EASE, BUT HAVING DIFFICULTY WITH ANY FINE MOTOR MOVEMENT WITH HIS FINGERS. HIS PUPILS ARE EQUAL AND REACTIVE. HE OPENS HIS EYES SPONTANEOUSLY, BUT HE DOESN'T MOVE HIS FACIAL MUSCLES TOO MUCH, OR OPENS HIS EYES WIDELY. BED LOW AND LOCKED. CALL LIGHT WITHIN REACH. HR HAS SLOWLY INCREASED FROM THE LOW 100s TO THE LOW 110s T/O DAY. BP IS STILL HYPERTENSIVE, BUT SBP REMAINS < 200 AND IS IN AN ACCEPTABLE RANGE. WILL CONTINUE TO MONITOR.
--- NOTE | 2020-06-07 18:37 | NUR ---
SHIFT SUMMARY NO ACUTE EVENTS T/O DAY. PT HAS BEEN SLIGHTLY MORE LETHARGIC/SLEEPY DAY GONE ON. HE CONTINUES TO BE ON BIPAP 04/21, 45%, RR 20-25. PT IS IN SINUS TACH, WITH A RATE THAT HAS TRENDED UPWARDS T/O DAY, AND IS NOW IN THE 110-118 RANGE. PT HAS BEEN HYPERTENSIVE, BUT SBP HAS DROPPED INTO THE 160 RANGE (WAS 170-200). SEE PREVIOUS NOTES, ASSESSMENTS FOR NEURO STATUS T/O DAY. PT WAS BATHED TODAY. BACK/COCCYX LOOKED WNL. LUNG SOUNDS ARE GENERALLY DIMINISHED, AND ABSENT IN THE BASES. PT IS SLOW TO RESPOND. HE HAS NS INFUSING AT 75 ML/HR. HE WAS MADE NPO AFTER LAST NIGHT'S CVA. PALLIATIVE 2 CARE IS MEETING WITH 2 OF HIS DAUGHTERS AND HIS [id number] TOMORROW MORNING AT ~[phone] TO DISCUSS GOALS OF CARE, ADVANCED CARE PLANNING IN GENERAL, ETC... THE PT IS EXPERIENCING AN APHASIA S/P CVP LAST NIGHT, WELL RIGHT SIDED HEMIPLEGIA (UNSURE IF PROPER TERMINOLOGY FOR THE RESIDUAL EFFECTS FROM THE CVA). THE PT IS DEPENDENT ON THE BIPAP AND THE RADIOLOGIST CANCELLED THE CT GUIDED NEEDLE BIOPSY THIS MORNING DUE TO THE UNSTABLE NATURE OF THE PATIENT. DR GORDON AND SHWETA AWARE - WILL WAIT TO SEE WHAT IS DISCUSSED IN THE MEETING TOMORROW MORNING BEFORE CHOOSING TO GO AHEAD WITH THE PROCEDURE, OR TO SIMPLY CANCEL IT. 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 THE ONCOLOGIST THIS MORNING SAID THAT IF THIS CHEMO IS GOING TO WORK, IT WILL SHOW IMPROVEMENT/RELIEF IN THE FIRST WEEK, IF THERE IS NO RELIEF OR IMPROVEMENT IN THE FIRST WEEK - THEN IT WON'T WORK. I HAVE TALKED WITH ASH, AND MADI TODAY. BOTH ARE UPDATED. ASH IS THE DECISION MAKER, PER THE PT. SHE IS TO BE CALLED WITH ANY CHANGES OVERNIGHT, OR BEFORE 1000 am TOMORROW. BED LOW AND LOCKED. CALL LIGHT WITHIN REACH.
--- NOTE | 2020-06-07 19:35 | NUR ---
ASSUMED CARE PT LETHARGIC; O2 SATS >[address] W/ 45% FIO2; BP REMAINS ELEVATED 168/88; SINUS TACH NOTED W/ HR 111; PT IS ABLE TO SQUEEZE W/ L HAND; R SIDE FLACCID; PT LYING QUIETLY; BED LOCKED & LOW; WILL CONTINUE TO MONITOR CLOSELY.
--- NOTE | 2020-06-08 05:02 | NUR ---
SHIFT SUMMARY PT LETHARGIC T/O SHIFT; VSS; SINUS TACH NOTED W/ HR 110-130; O2 SATS >93 ON BIPAP 10/8 FIO2 45%; RT AT BEDSIDE TO ASSESS; Q 2 TURNS; ORAL CARE PROVIDED; PT ABLE TO SQUEEZE W/ L HAND TO ANSWER YES/NO QUESTIONS; FENTANYL ADMINISTERED 1X THIS SHIFT FOR PAIN; SUAZO PATENT & DRAINING DK YAYO URINE; NS GTT @ 75; NO ACUTE CHANGES NOTED; CALL LIGHT IN REACH; BED IN LOWEST POSITION; WILL CONTINUE TO MONITOR CLOSELY UNTIL HAND OFF TO DAY SHIFT RN.
--- NOTE | 2020-06-08 08:00 | NUR ---
INITAL SHIFT ASSESSMENT BED SIDE REPORT RECIEVED FROM OFF GOING RN. PT IS NOT ABLE TO FOLLOW ANY COMMANDS AT THIS TIME. BIPAP IN PLACE WITH FULL FACE MASK. PT DOES NOT OPEN EYES WITH COMMAND. ORAL CARE WAS DONE. PT'S DENTURES ARE IN A CUP ON COUNTER. PT DID NOT FOLLOW COMMANDS TO OPEN MOUTH WITH ORAL CARE. WASH CLOTH WAS USED BY THIS RN TO CLEAN PT'S FACE. EYES WERE CLEANED WELL. PT DID NOT FOLLOW ANY COMMANDS AT THIS TIME. BIPAP MASK WAS OFF FOR LESS THAN ONE MIN BEFORE OXYGEN SATS WERE DOWN TO 80. MASK REPLACED AND PT RECOVERED QUICKLY. DURING MORNING ASSESSMENT PT WAS MOVING LT ARM OUT IN AIR REACHING FOR THINGS. HE HAS BEEN NONVERBAL WELL DURING ASSESSMENT. ABD IS ROUND AND FIRM WITH HYPOACTIVE BOWEL TONES. SUAZO CATH IN PLACE DRAINING CLEAR YELLOW URINE. PT HAS TWO PERIPHERAL IV'S TO RIGHT ARM. NS FLUIDS RUNNING ORDERED. SEE EMAR FOR ALL ADMINISTERED MEDICATIONS. THIS RN WILL BE HOLDING ALL PO MEDS AT THIS TIME. WILL CON'T TO MONITOR AND KEEP PT SAFE.
--- NOTE | 2020-06-08 10:02 | NUR ---
Pt resting in be with his eyes closed and on BIPAP. Pt does not respond to this RNs touch or voice. Pt appears comfortable at this time. Spoke with Bedside RN and discussed case. Spoke with Dr Sweeney and Dr Aleman. Discussed case and concerns. MDs agree goals of care discussion with family may be beneficial. Plan to meet with family around 1030 this AM.
--- NOTE | 2020-06-08 11:33 | NUR ---
Met with family in ED Palliative Care office. Pt's sister in law November (health care decision maker per Pt upon admission), daughter Deena, and daughter Nirmal are present during meeting. Engaged in therapeutic discussion regarding goals of care. Updated on plan of care and Pt's condition. Engaged in therapeutic listening as family are in agreement that Pt would not want to live in current condition. Discussed options including comfort care and educated on comfort care philosophy. Family is in agreement that Pt would want to focus on comfort at this point. Decision maker Marina is in agreement and plan will be to place Pt on comfort care once 3rd daughter Trini arrives this eveing. Trini is flying in from [place] and should arrive to hospital around [id number]. Comfort care will be implimented at that time. Discussed visitor rules including when Pt is transitioned to comfort. Escorted Deena and Marina to Pt's room. Encouraged family to talk with Pt. Family requesting surgical device sales representative. Family expresses appreciation of visit and reports no other concerns at this time. Spoke with Chaplain Mccurdy and relayed family's request. Discussed case with Bedside RN Crys and relayed plan. Palliative Care will remain available.
--- NOTE | 2020-06-08 12:48 | NUR ---
FAMILY UPDATE FAMILY IN AND SPOKE WITH PALLIATIVE CARE FELIPE. IT WAS DECIDED TO CHANGE PT TO COMFORT CARE THIS EVENING WHEN MORE FAMILY ARRIVES. ASH AND BIENVENIDO ARE IN TO SEE PT NOW. PT CON'T TO HAVE NO CHANGES WITH HIS ALERTNESS. HE IS MOVING HIS LEFT ARM ABOUT A FAIR AMOUNT. HOWEVER NOT FOLLOWING COMMANDS. VITALS CON'T TO BE STABLE.
--- NOTE | 2020-06-08 16:47 | NUR ---
TRANSFER TO MEDICAL FLOOR DR ROCK WAS CALLED REGARDING PT'S CONDITION AND POSSIBLY CHANGING TO COMFORT CARE THIS EVENING. SHE ORDERED TO HAVE HIM MED WITH NO TELE. FAMILY IS HERE AT THIS TIME COLLECTING SOME BELONGINGS. RT IS ALSO HERE TO MOVE PT UP TO MEDICAL FLOOR. REPORT WAS GIVEN TO MEDICAL FLOOR RN. PT IS STABLE AT THIS TIME. FENTANYL IV WAS GIVEN TO HELP WITH COMFORT FOR TRANSFER.
--- NOTE | 2020-06-08 17:34 | NUR ---
Spiritual care note: Provided prayer and gentle anticipatory bereavement teen counselor to dtr and [id number] at bedside this morning. Both were tearful, but appropriate. Pt was not responsive, but appears peaceful. Training Technician services will remain available.
--- NOTE | 2020-06-08 17:37 | NUR ---
PHYSICIAN NOTIFIED/PT TRANSFER THIS RN RECEIVED PT TO UNIT AT APPROXIMATELY 1700 FROM ICU. PT EYES ARE OPEN BUT PT DOES NOT RESPOND TO VERBAL STIMULI. PT IS ON BIPAP FOR OXYGEN. THIS RN CALLED DR. ROCK AT APPROXIMATELY 1730 FOR PT SUSTAINING HR OF 130S. THIS RN RECIEVED ORDERS TO PLACE TELEMETRY ON PT AND ADMINISTER METOPROLOL IV PER EMAR. THIS RN WILL CONTINUE TO MONITOR PT STATUS AND AWAITS FAMILY ARRIVAL FOR DISCUSSION FOR COMFORT CARE NOTIFIED IN REPORT OF PT.
--- NOTE | 2020-06-08 19:13 | NUR ---
SHIFT SUMMARY PT IS NONESPONSIVE WITH EYES OPEN, BUT NO EYE MOVEMENT SEEN OR VERBALIZATION. PT CHECKED FREQUENTLY SINCE TRANSFER TO UNIT THIS AMOR. PT IS ON BIPAP WITH CONTINUOUS PULSE OXIMETRY. LOPRESSOR GIVEN IV THIS AMOR FOR TACHYCARDIA AND TELEMETRY IN PLACE. PT IS RUNNING SINUS TACHYCARDIA WITH SOME PVCS. PT IS ON BEDREST. PLAN IS FOR FAMILY TO ARRIVE THIS AMOR AT APPROXIMATELY 2000 FOR DISCUSSION ON COMFORT CARE. IV ABX CURRENTLY INFUSING. PT IS CURRENTLY IN BED, CALL LIGHT IN REACH, BED IN LOW POSITION.
--- NOTE | 2020-06-09 00:46 | NUR ---
CALLED INTO ROOM BY PT'S DAUGHTER. PT. FOUND UNRESPONSIVE IN BED @2355, NO RESPIRATIONS, NO PULSE, NO HEART OR BREATH SOUNDS AUSCULTATED. NO CODE CALLED PT. COMFORT CARE/DNR. INDWELLING URINARY CATHETER AND IV ACCESS DEVICE IN RT/LT ARM REMOVED. GAUZE AND TAPE APPLIED. POSTMORTEM CARE PERFORMED AND DENTURES PLACED IN MOUTH. BELONGINGS TAKEN HOME BY PT'S DAUGHTERS. ALYSSA TO BE CALLED BY CHICKEN HATCHERY HELPER LISA.
== END 2020-06-09 12:50 | DRG 180 ==
LOC: ER 15:47 → ICUW 18:27 → MEDS 18:27 → PCU 18:27 → MEDS 06-01 14:09 → ICUW 06-05 06:25 → MEDS 06-08 17:14
PROVIDERS: Emergency Medicine; Internal Medicine; Internal Medicine Critical Care Medicine; Physician Assistant; ADMIT Internal Medicine
PROC: 0W9B3ZZ Drainage of Left Pleural Cavity, Percutaneous Approach (ICD-10-PCS; 2020-06-01)
PROC: 5A09357 Assistance with Respiratory Ventilation, Less than 24 Consecutive Hours, Continuous Positive Airway Pressure (ICD-10-PCS; 2020-06-05)
PROC: 3E04305 Introduction of Other Antineoplastic into Central Vein, Percutaneous Approach (ICD-10-PCS; principal; 2020-06-06)
DX: C34.02 Malignant neoplasm of left main bronchus (principal); J96.01 Acute respiratory failure with hypoxia; J18.9 Pneumonia, unspecified organism; I63.412 Cerebral infarction due to embolism of left middle cerebral artery; J91.0 Malignant pleural effusion; J44.0 Chronic obstructive pulmonary disease with (acute) lower respiratory infection; J98.11 Atelectasis; G81.91 Hemiplegia, unspecified affecting right dominant side; Z20.828 Contact with and (suspected) exposure to other viral communicable diseases; Z51.5 Encounter for palliative care; Z66 Do not resuscitate; R19.7 Diarrhea, unspecified; G47.00 Insomnia, unspecified; I10 Essential (primary) hypertension; F41.9 Anxiety disorder, unspecified; Z79.899 Other long term (current) drug therapy; Z79.51 Long term (current) use of inhaled steroids; Z87.891 Personal history of nicotine dependence; Z78.1 Physical restraint status
CPT/HCPCS: 0097U; 0241U; 32555; 36415; 36600; 70450; 70470; 71045; 71250; 74177; 80053; 81001; 82042; 82728; 82803; 82945; 82947; 83540; 83550; 83615; 83735; 83986; 84100; 84157; 84484; 85025; 85610; 85730; 87070; 87205; 88108; 88305; 88341; 88342; 89051; 93005; 93010; 94640; 94660; 94760; 94762; 96365; 96367; 99285-25; A9270; J0456; J0696; J1100; J1650; J1940; J2060; J2270; J2405; J3010; J7030; J7040; J7050; J7060; J9045; J9267; Q9967